=== PATIENT | male | born 1980 | race Two or more races ===

== ENCOUNTER 2017-12-10 18:42 | Emergency (ER) | payer OTHER ==
[~2017-12-10] VITALS: Ht 165.1 cm; Wt 74.8 kg
[~2017-12-10 18:42] MED LIST: FEN145 PO; FENO145T PO; LOSA25TA50 PO; METH-543 PO
--- NOTE | 2017-12-10 18:48 | ER Report ---
History and Physical Time Seen By MD: 18:47 Hx. of Stated Complaint: Right upper quadrant abdominal pain HPI/ROS 37-year-old male was told in July incidentally while getting a right upper quadrant ultrasound that he had gallstones states that tonight about 5:00 he started having sharp shooting pain to his back is nauseated and has had fatty food the last 24 hours last ate at 5 PM had soup at that time Remainder of the 14 system rev: Yes Allergies: Coded Allergies: FILIBERTO Inhibitors (Verified Adverse Reaction, Intermediate, UNCONTROLLED COUGH, 07/15/17) Home Meds Active Scripts Methocarbamol (ROBAXIN-750) 750 Mg Tablet, 1 TAB PO TID Y for muscle spasm relief, #20 Prov:JANES RUIZ Arelis DO 07/15/17 Reported Medications Losartan Potassium (LOSARTAN POTASSIUM) 25 Mg Tablet, 25 MG PO QDAY 01/18/17 Fenofibrate Nanocrystallized (FENOFIBRATE) 145 Mg Tablet, 145 MG PO QDAY 01/18/17 Past Medical/Surgical History Strip hypertension hyperlipidemia, fatty liver Reviewed Nurses Notes: Yes Old Medical Records Reviewed: Yes Hx Smoking: No Smoking Status: Never Smoker Hx Substance Use Disorder: No Hx Alcohol Use: Yes Family History of: HTN Constitutional Vital Sign - Last 24 Hours 12/10/17 18:47 Temp 98.4 Pulse 79 Resp 16 B/P (MAP) 154/102 Pulse Ox 93 O2 Delivery Room Air Intake and Output 12/10/17 12/10/17 12/11/17 15:00 23:00 07:00 Intake Total 1000 ml Balance 1000 ml Physical Exam 37-year-old male alert and oriented mild distress HEENT has normocephalic atraumatic throat is non-reddened neck is supple no JVD no lymphadenopathy heart rate is regular no murmurs rubs or gallops lungs clear to auscultation abdomen is obese of right upper quadrant abdominal pain to palpation positive Oden sign bowel sounds 4 quadrants moves all extremities no peripheral edema Medical Decision Making Data Points Result Diagram: 12/10/17 1905 12/10/17 1905 Laboratory Hematology Test 12/10/17 19:05 12/10/17 19:29 Red Blood Count 5.43 M/uL (4.00-5.60) Mean Corpuscular Volume 89.0 fL (80.0-96.0) Mean Corpuscular Hemoglobin 31.4 pg (26.0-33.0) Mean Corpuscular Hemoglobin Concent 35.3 g/dL (32.0-36.0) Red Cell Distribution Width 12.8 % (11.5-14.5) Mean Platelet Volume 9.7 fL (7.2-11.1) Neutrophils (%) (Auto) 79.9 % (39.4-72.5) Lymphocytes (%) (Auto) 12.3 % (17.6-49.6) Monocytes (%) (Auto) 5.8 % (4.1-12.4) Eosinophils (%) (Auto) 1.3 % (0.4-6.7) Basophils (%) (Auto) 0.7 % (0.3-1.4) Nucleated RBC Relative Count (auto) 0.0 /100WBC Neutrophils # (Auto) 8.8 K/uL (2.0-7.4) Lymphocytes # (Auto) 1.4 K/uL (1.3-3.6) Monocytes # (Auto) 0.6 K/uL (0.3-1.0) Eosinophils # (Auto) 0.1 K/uL (0.0-0.5) Basophils # (Auto) 0.1 K/uL (0.0-0.1) Nucleated RBC Absolute Count (auto) 0.00 K/uL Sodium Level 137 mmol/L (137-145) Potassium Level 3.8 mmol/L (3.5-5.0) Chloride Level 100 mmol/L (98-107) Carbon Dioxide Level 23 mmol/L (22-30) Blood Urea Nitrogen 11 mg/dl (9-21) Creatinine 0.90 mg/dl (0.66-1.25) Glomerular Filtration Rate Calc > 60.0 Random Glucose 122 mg/dl (75-110) Lactate 2.0 mmol/L (0.7-2.1) Calcium Level 9.8 mg/dl (8.4-10.2) Total Bilirubin 0.8 mg/dl (0.2-1.3) Aspartate Amino Transf (AST/SGOT) 124 U/L (0-35) Alanine Aminotransferase (ALT/SGPT) 315 U/L (0-56) Alkaline Phosphatase 82 U/L (0-126) Total Protein 8.4 gm/dl (6.3-8.2) Albumin 4.8 g/dl (3.5-5.0) Amylase Level 93 U/L (0-110) Lipase 63 U/L (23-300) Helicobacter pylori IgG Antibody Negative (NEGATIVE) Urine Color Yellow Urine Clarity Clear Urine pH 5.0 pH (4.8-9.5) Urine Specific Terral 1.021 Urine Protein 30 mg/dL (NEGATIVE) Urine Glucose (UA) Negative mg/dL (NEGATIVE) Urine Ketones Negative mg/dL (NEGATIVE) Urine Blood Negative (NEGATIVE) Urine Nitrite Negative (NEGATIVE) Urine Bilirubin Negative (NEGATIVE) Urine Urobilinogen Negative mg/dL (0.2-1.9) Urine Leukocyte Esterase Negative (NEGATIVE) Urine RBC 1 /HPF (0-2/HPF) Urine WBC <1 /HPF (0-5/HPF) Urine Squamous Epithelial Cells Few /LPF (</=FEW) Urine Bacteria Negative /HPF (NONE-FEW) Urine Mucus None /HPF (NONE-FEW) Chemistry Test 12/10/17 19:05 12/10/17 19:29 White Blood Count 11.1 k/uL (4.5-11.0) Red Blood Count 5.43 M/uL (4.00-5.60) Hemoglobin 17.1 g/dL (14.0-18.0) Hematocrit 48.3 % (42.0-52.0) Mean Corpuscular Volume 89.0 fL (80.0-96.0) Mean Corpuscular Hemoglobin 31.4 pg (26.0-33.0) Mean Corpuscular Hemoglobin Concent 35.3 g/dL (32.0-36.0) Red Cell Distribution Width 12.8 % (11.5-14.5) Platelet Count 255 K/uL (150-450) Mean Platelet Volume 9.7 fL (7.2-11.1) Neutrophils (%) (Auto) 79.9 % (39.4-72.5) Lymphocytes (%) (Auto) 12.3 % (17.6-49.6) Monocytes (%) (Auto) 5.8 % (4.1-12.4) Eosinophils (%) (Auto) 1.3 % (0.4-6.7) Basophils (%) (Auto) 0.7 % (0.3-1.4) Nucleated RBC Relative Count (auto) 0.0 /100WBC Neutrophils # (Auto) 8.8 K/uL (2.0-7.4) Lymphocytes # (Auto) 1.4 K/uL (1.3-3.6) Monocytes # (Auto) 0.6 K/uL (0.3-1.0) Eosinophils # (Auto) 0.1 K/uL (0.0-0.5) Basophils # (Auto) 0.1 K/uL (0.0-0.1) Nucleated RBC Absolute Count (auto) 0.00 K/uL Glomerular Filtration Rate Calc > 60.0 Lactate 2.0 mmol/L (0.7-2.1) Calcium Level 9.8 mg/dl (8.4-10.2) Total Bilirubin 0.8 mg/dl (0.2-1.3) Aspartate Amino Transf (AST/SGOT) 124 U/L (0-35) Alanine Aminotransferase (ALT/SGPT) 315 U/L (0-56) Alkaline Phosphatase 82 U/L (0-126) Total Protein 8.4 gm/dl (6.3-8.2) Albumin 4.8 g/dl (3.5-5.0) Amylase Level 93 U/L (0-110) Lipase 63 U/L (23-300) Helicobacter pylori IgG Antibody Negative (NEGATIVE) Urine Color Yellow Urine Clarity Clear Urine pH 5.0 pH (4.8-9.5) Urine Specific Terral 1.021 Urine Protein 30 mg/dL (NEGATIVE) Urine Glucose (UA) Negative mg/dL (NEGATIVE) Urine Ketones Negative mg/dL (NEGATIVE) Urine Blood Negative (NEGATIVE) Urine Nitrite Negative (NEGATIVE) Urine Bilirubin Negative (NEGATIVE) Urine Urobilinogen Negative mg/dL (0.2-1.9) Urine Leukocyte Esterase Negative (NEGATIVE) Urine RBC 1 /HPF (0-2/HPF) Urine WBC <1 /HPF (0-5/HPF) Urine Squamous Epithelial Cells Few /LPF (</=FEW) Urine Bacteria Negative /HPF (NONE-FEW) Urine Mucus None /HPF (NONE-FEW) Urinalysis Test 12/10/17 19:29 Urine Color Yellow Urine Clarity Clear Urine pH 5.0 pH (4.8-9.5) Urine Specific Terral 1.021 Urine Protein 30 mg/dL (NEGATIVE) Urine Glucose (UA) Negative mg/dL (NEGATIVE) Urine Ketones Negative mg/dL (NEGATIVE) Urine Blood Negative (NEGATIVE) Urine Nitrite Negative (NEGATIVE) Urine Bilirubin Negative (NEGATIVE) Urine Urobilinogen Negative mg/dL (0.2-1.9) Urine Leukocyte Esterase Negative (NEGATIVE) Urine RBC 1 /HPF (0-2/HPF) Urine WBC <1 /HPF (0-5/HPF) Urine Squamous Epithelial Cells Few /LPF (</=FEW) Urine Bacteria Negative /HPF (NONE-FEW) Urine Mucus None /HPF (NONE-FEW) EKG/Imaging Imaging FACILITY: PATIENT NAME: Viktor Holbrook : 1980 MR: [id number] V: [id number] EXAM DATE: ORDERING PHYSICIAN: ROSEANNA FINNEGAN [place]CHNOLOGIST: [place] [facility] [place] Viktor Hol[place] : 1980 Visit/Account:[id number] Date of Sevice: 12/10/2017 EXAMINATION: Focused right upper quadrant ultrasound COMPARISON: None HISTORY: Right upper quadrant pain today. Findings: Standard right upper quadrant abdominal ultrasound is performed. Pancreas: Visualized portions of the pancreas are unremarkable. The tail is obscured by bowel gas. Liver and portal vein: Diffusely echogenic liver. Main portal vein is patent. Gallbladder and biliary system: 16mm gallstone in the gallbladder neck and likely a small amount of gallbladder sludge. No wall thickening. Trace pericholecystic fluid. A positive sonographic Oden sign is reported. Common bile duct is poorly visualized. Aorta and IVC: The visualized aorta and IVC are patent. Kidneys: The right kidney measures 11.1 x 5.9 x 6.1 cm . No renal mass, stone, or hydronephrosis. Ascites: None. IMPRESSION: 1. Cholelithiasis with trace pericholecystic fluid as well as a positive sonographic Oden sign. Acute cholecystitis is a possibility and surgical consultation is recommended. 2. Hepatic steatosis. Results were discussed with ROSEANNA FINNEGAN at 12/10/2017 8:34 PM. Report Dictated By: Jairo Lyons MD at 12/10/2017 8:30 PM Report E-Signed By: Jairo Lyons MD at 12/10/2017 8:34 PM WSN:[id number] ED Course/Re-evaluation Clinical Indication for ER IV: Hydration ED Course Ultrasound report from oxygen therapy technician is common bile duct was measured at 4.7 multiple stones in the gallbladder gallbladder wall is slightly thick does have a fatty liver Re-evaluation Discussed patient with Dr. mon he will come and see the patient and talked with him about when to take the gallbladder out. Dr. Dr. Slater came and saw patient tonight together they decided patient will go home overnight come back in tomorrow to have his gallbladder removed we'll send him home with Zofran and Conrath instructions to remain nothing by mouth after midnight Decision to Disposition Date: Dec 10, 2017 Decision to Disposition Time: 19:19 Depart Departure Latest Vital Signs Vital Signs Date Time Temp Pulse Resp B/P (MAP) Pulse Ox O2 Delivery O2 Flow Rate FiO2 12/10/17 18:47 98.4 79 16 154/102 93 Room Air Impression: Primary Impression: Cholecystitis Condition: Improved Disposition: HOME OR SELF-CARE Referrals: AVIS BRUNO MD (PCP) JAYNE LEONARD MD 1 Day Patient Instructions: Cholecystitis (ED) Additional Instructions: Take Zofran 1 every 6 hours as needed for nausea Conrath 2 every 4-6 hours as needed for pain nothing Teater drink after midnight as instructed by her surgeon , they will call you tomorrow to set up your gallbladder surgery return for worsening symptoms ROSEANNA FINNEGAN Dec 10, 2017 18:48
[2017-12-10] MEDS ORDERED: NS(*) 0.9% 1000 ML BAG 1,000 ML IV ONE ×2 (18:53→20:35)
[2017-12-10] MEDS ORDERED: PANTOPRAZOLE SOD 40 MG IV VIAL IVP ONE (18:55)
[2017-12-10] MEDS ORDERED: fentaNYL CITR 100 MCG/2 ML AMP IVP ONE (18:55)
[2017-12-10] MEDS ORDERED: ONDANSETRON 4 MG/2 ML VIAL IVP ONE (18:55)
[2017-12-10 19:20] LABS: PLATELET COUNT, AUTOMATED 255 K/uL (150-450)
[2017-12-10] MEDS ORDERED: PIPERACILLIN/TAZO*3.375GM VIAL 3.375 GM in NS(*) 0.9% 100 ML ADDVANT BAG 100 ML IVPB ONE (20:25)
--- NOTE | 2017-12-10 20:38 | RADIOLOGY IMAGING REPORT ---
FACILITY: [facility] - [place] PATIENT NAME: Viktor Holbrook : 1980 MR: [id number] V: [id number] EXAM DATE: ORDERING PHYSICIAN: ROSEANNA FINNEGAN TECHNOLOGIST: Location: [facility] - [place] Patient: Viktor Holbrook : 1980 Visit/Account:[id number] Date of Sevice: 12/10/2017 EXAMINATION: Focused right upper quadrant ultrasound COMPARISON: None HISTORY: Right upper quadrant pain today. Findings: Standard right upper quadrant abdominal ultrasound is performed. Pancreas: Visualized portions of the pancreas are unremarkable. The tail is obscured by bowel gas. Liver and portal vein: Diffusely echogenic liver. Main portal vein is patent. Gallbladder and biliary system: 16mm gallstone in the gallbladder neck and likely a small amount of g allbladder sludge. No wall thickening. Trace pericholecystic fluid. A positive sonographic Oden sig n is reported. Common bile duct is poorly visualized. Aorta and IVC: The visualized aorta and IVC are patent. Kidneys: The right kidney measures 11.1 x 5.9 x 6.1 cm . No renal mass, stone, or hydronephrosis. Ascites: None. IMPRESSION: 1. Cholelithiasis with trace pericholecystic fluid as well as a positive sonographic Oden sign. Acu te cholecystitis is a possibility and surgical consultation is recommended. 2. Hepatic steatosis. Results were discussed with ROSEANNA FINNEGAN at 12/10/2017 8:34 PM. Report Dictated By: Jairo Lyons MD at 12/10/2017 8:30 PM Report E-Signed By: Jairo Lyons MD at 12/10/2017 8:34 PM WSN:[id number]
[2017-12-10] MEDS ORDERED: ACET/HYDROC 5/325MG TH ER ONLY 2 TAB/BOTTLE PO ONE (21:00)
[2017-12-10] MEDS ORDERED: ONDANSETRON 4 MG ODT TH SL ONE (21:00)
[2017-12-10] MEDS ORDERED: APAP/HYDROCODONE 325/5 TAB PO ONE (21:00)
[2017-12-10 21:04] VITALS: BP 167/108
--- NOTE | 2017-12-10 21:07 | General Surgery 1 H&P ---
History of Present Illness Chief Complaint epigastric pain History of Present Illness 37 yo male with a history of htn presents with epigastric pain for approx 12 hours. it is an aching pain across the upper abdomen. no radiation to the back. he has nausea. not much appetite. no fever. he has had some back spasms in the past but not quite like this. he is seen in the ed. ultrasound reveals cholelithiasis and cholecystitis. wbc slightly elevated at 11. lfts show alk phos and bilirubin normal and slight increase in sgot and sgpt. History Other Past Surgeries: none Home Meds Active Scripts Methocarbamol (ROBAXIN-750) 750 Mg Tablet, 1 TAB PO TID Y for muscle spasm relief, #20 Prov:JANES RUIZ DO 07/15/17 Reported Medications Losartan Potassium (LOSARTAN POTASSIUM) 25 Mg Tablet, 25 MG PO QDAY 01/18/17 Fenofibrate Nanocrystallized (FENOFIBRATE) 145 Mg Tablet, 145 MG PO QDAY 01/18/17 Allergies: Coded Allergies: FILIBERTO Inhibitors (Verified Adverse Reaction, Intermediate, UNCONTROLLED COUGH, 07/15/17) Family History: FH: diabetes mellitus FATHER, , Age:72 FH: heart disease BROTHER OR SISTER FH: hypertension FATHER, , Age:72 BROTHER OR SISTER Malignant neoplasm of gastrointestinal tract BROTHER OR SISTER, Age:42 Malignant neoplasm of gastrointestinal tract BROTHER OR SISTER, Age:42 Review of Systems History of Hypertension?: Yes History of DVT?: No Obstructive Sleep Apnea?: No History of Liver Disease?: Yes (fatty liver) History of Kidney Disease?: No Constitutional: No Fever, No Weight Loss, No Weight Gain, No Chills, No Night Sweats, No Other Respiratory: Denies Shortness of Breath, Denies Other Cardiovascular: Denies Chest Pain, Denies Other : Denies Dysuria, Denies Other Exam Vital Signs Date Time Temp Pulse Resp B/P (MAP) Pulse Ox O2 Delivery O2 Flow Rate FiO2 12/10/17 18:47 98.4 79 16 154/102 93 Room Air General Appearance: Alert, Awake, No Acute Distress Cardiovascular: Regular Rate and Rhythm Respiratory: Clear to Auscultation GI: Other (abdomen soft mild tenderness in the epigastrium.) Medical Decision Making Data Points Result Diagram: 12/10/17190412/10/171904 Assessment and Plan Problems: (1) Cholecystitis Status: Acute Assessment & Plan: 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 he ate 3 hours ago and that make him at increased risk for anesthesia. we will plan on doing procedure tomorrow. pt would like to go home for the night. will give him some po pain meds and he is to be npo except sip of water with meds. Venous Thromboembolism Antithrombotics Is Pt On Any Antithrombotics?: No JAYNE LEONARD MD Dec 10, 2017 21:07
[2017-12-11] MEDS ORDERED: FAMOTIDINE 20 MG TAB PO ONE (10:00)
[2017-12-11] MEDS ORDERED: NORMOSOL R SOLN(*) 1000 ML BAG 1,000 ML IV PRN (10:00)
[2017-12-11] MEDS ORDERED: LIDOCAINE/SOD BICARB 8.4% SYR ID ONE (10:00)
[2017-12-11] MEDS ORDERED: MIDAZOLAM 2 MG/2 ML VIAL IVP PRN (10:00)
[2017-12-11] MEDS ORDERED: KET10 PO (11:14)
[2017-12-11] MEDS ORDERED: HYDR-4309 PO (11:14)
== END 2017-12-10 21:20 | disposition home or self-care (01) ==
LOC: ER 18:55
DX: K81.9 Cholecystitis, unspecified (principal); K76.0 Fatty (change of) liver, not elsewhere classified
CPT/HCPCS: 76705; 81001; 82150; 83605; 83690; 85025; 86677; 96361; 96365; 96375; 99284; C9113; J2405; J2543; J3010; J7030; J7050; S0119; 82040; 82247; 82310; 82374; 82435; 82565; 82947; 84075; 84132; 84155; 84295; 84450; 84460; 84520

== ENCOUNTER 2017-12-11 08:39 | Day surgery (SDC) | payer OTHER ==
[~2017-12-11] VITALS: Ht 165.1 cm; Wt 75.3 kg
[2017-12-11] MEDS: NORMOSOL R SOLN(*) 1000 ML BAG 1,000 ML IV PRN ×2 (09:54→14:30)
[2017-12-11] MEDS ORDERED: FAMOTIDINE 20 MG TAB PO ONE (10:00)
[2017-12-11] MEDS ORDERED: cefOXitin/DEX(*) 2GM/50ML PREM 50 ML IVPB ONE (10:00)
[2017-12-11] MEDS ORDERED: MIDAZOLAM 2 MG/2 ML VIAL IVP PRN (10:00)
[2017-12-11] MEDS ORDERED: LIDOCAINE/SOD BICARB 8.4% SYR ID ONE (10:00)
[2017-12-11 10:05] VITALS: BP 149/95
[2017-12-11] MEDS ORDERED: ROPIVACAINE 0.2% 20 ML VIAL ONE (11:12)
--- NOTE | 2017-12-11 11:13 | Post Operative Progress Note ---
Post Operative Progress Note Date: Dec 11, 2017 Time: 13:24 Surgeon: khloe Anesthesia: dr melgoza Pre-Op Diagnosis: cholelithiasis and cholecystitis Post-Op Diagnosis: same and choledocholithiasis Procedure(s): lap trudi with gram and common bile duct exploration JAYNE LEONARD MD Dec 11, 2017 11:13
[2017-12-11] MEDS ORDERED: KET10 PO (11:14)
[2017-12-11] MEDS ORDERED: HYDR-4309 PO (11:14)
--- NOTE | 2017-12-11 11:16 | Short(Outpt) Discharge Summary ---
Discharge Summary Reason for Hosp/Final Diag: (1) Cholecystitis Status: Acute Hospital Course & Plan: laparoscopic cholecystectomy and common bile duct exploration and cholangiogram (2) Choledocholithiasis Departure Discharge to: Home Discharge Instructions Home Meds Active Scripts Hydrocodone Bit/Acetaminophen (NORCO 5-325 TABLET) 1 Each Tablet, 1 EACH PO Q4H Y for PAIN, #30 TAB Prov:JAYNE LEONARD MD 12/11/17 Ketorolac Tromethamine (KETOROLAC TROMETHAMINE) 10 Mg Tab, 10 MG PO Q6H, #20 TAB Prov:JAYNE LEONARD MD 12/11/17 Methocarbamol (ROBAXIN-750) 750 Mg Tablet, 1 TAB PO TID Y for muscle spasm relief, #20 Prov:JANES RUIZ DO 07/15/17 Reported Medications Losartan Potassium (LOSARTAN POTASSIUM) 25 Mg Tablet, 25 MG PO QDAY 01/18/17 Fenofibrate Nanocrystallized (FENOFIBRATE) 145 Mg Tablet, 145 MG PO QDAY 01/18/17 Diet: Regular Activity: As Tolerated Special Instructions: ice to incision for 48 hours remove bandage and shower saturday to see me in one week, call [phone] for apt JAYNE LEONARD MD Dec 11, 2017 11:16
[2017-12-11] MEDS ORDERED: SUGAMMADEX SOD 200 MG/2 ML SDV ONE (11:30)
[2017-12-11] MEDS ORDERED: PROPOFOL EMUL(*) 10MG/ML 20 ML 20 ML ONE (11:30)
[2017-12-11] MEDS ORDERED: LABETALOL HCL 20 MG/4 ML SYR ONE (11:30)
[2017-12-11] MEDS ORDERED: METOCLOPRAMIDE 10 MG/2 ML SDV ONE (11:30)
[2017-12-11] MEDS ORDERED: DEXAMETHASONE SOD 4 MG/ML VIAL ONE (11:30)
[2017-12-11] MEDS ORDERED: LIDOCAINE MPF 1% 5 ML VIAL ONE (11:30)
[2017-12-11] MEDS ORDERED: ONDANSETRON 4 MG/2 ML VIAL ONE (11:30)
[2017-12-11] MEDS ORDERED: fentaNYL CITR 250 MCG/5 ML AMP ONE (11:31)
[2017-12-11] MEDS ORDERED: IOPAMIDOL 61% 75 ML INFUS BTL 75 ML ONE (11:32)
[2017-12-11] MEDS ORDERED: ROCURONIUM BROM 10 MG/ML 10 ML ONE (11:33)
[2017-12-11] MEDS ORDERED: KETOROLAC 30 MG/ML VIAL ONE (13:07)
--- NOTE | 2017-12-11 14:19 | RADIOLOGY IMAGING REPORT ---
FACILITY: [facility] - [place] PATIENT NAME: Viktor Holbrook : 1980 MR: [id number] V: [id number] EXAM DATE: ORDERING PHYSICIAN: JAYNE LEONARD TECHNOLOGIST: [place] [facility] [place] Viktor Hol[place] : 1980 Visit/Account:[id number] Date of Sevice: 12/11/2017 Intraoperative cholangiogram Indication: Epigastric pain Findings: DOSE: DAP was 0.3795 mGy*m2. Cannulation of the cystic duct remnant is noted. Initial opacification demonstrates some spillage al caro the needle tip. The intrahepatic biliary system appeared unremarkable. Initial images demonstra te possible filling defect distal common bile duct. Final images demonstrate no filling defects in t he biliary system. Spillage is seen into the duodenum rapidly IMPRESSION: 1. Intraoperative cholangiography Report Dictated By: Wilbert Bazan MD at 12/11/2017 2:13 PM Report E-Signed By: Wilbert Bazan MD at 12/11/2017 2:14 PM WSN:[email or web address]
[2017-12-11 14:30] VITALS: BP 122/84
[2017-12-11 14:45] VITALS: BP 125/87
[2017-12-11 15:00] VITALS: BP 130/90
[2017-12-11 15:15] VITALS: BP 131/87
[2017-12-11 15:18] VITALS: BP 131/88
--- NOTE | 2017-12-11 21:29 | OPERATIVE REPORT 1 ---
EVENT DATE: December 11, 2017 SURGEON: Nacho Fink MD ANESTHESIOLOGIST: Geo Mathew MD ANESTHESIA: General. PREOPERATIVE DIAGNOSES Cholelithiasis and cholecystitis. POSTOPERATIVE DIAGNOSES Acute cholecystitis, cholelithiasis, and choledocholithiasis. PROCEDURE PERFORMED Laparoscopic cholecystectomy with common bile duct exploration and cholangiogram. DESCRIPTION OF PROCEDURE The patient was placed in the supine position and given general anesthetic. His abdomen was prepped and draped in a sterile fashion. The skin was anesthetized with 0.2% ropivacaine. A small incision was made above the umbilicus. A Veress needle was inserted. The abdomen was insufflated with CO2. We then placed a 5 mm port under direct vision. We then placed two 5 mm ports in the right subcostal region and a 10 mm in the epigastrium under direct vision. The gallbladder was visualized. It was acutely inflamed. We could not get ahold of it, so we had to aspirate it. After it was aspirated, we were able to grasp the thickened, inflamed gallbladder and raise it cephalad. We dissected out the cystic duct-gallbladder junction. The cystic duct was quite dilated. We opened the cystic duct and obtained cholangiograms which showed a filling defect. We then passed the ureteral stone basket several times and removed sludge. We then irrigated the duct out with saline and repeated the cholangiogram. This showed a distal filling defect. We reinserted the stone basket and retrieved a stone. At this point, we again irrigated the duct with saline and repeated the cholangiogram. This showed good flow into the duodenum and no filling defect. At this point, the cystic duct was transected. It was ligated with an 0 chromic Endoloop. We then placed two clips into position. We then dissected out the distal duct. This was clipped proximally and transected. We used electrocautery to dissect the gallbladder from the bed of the liver. This dissection went very nicely. We had excellent hemostasis. The gallbladder was placed in an Endo Pouch and removed through the epigastric port. We then suctioned, irrigated, and inspected for bleeding. We had excellent hemostasis in the gallbladder fossa. The ports were removed under direct vision. No bleeding was noted. The epigastric port was closed with an 0 Vicryl. The skin was closed with interrupted 4-0 Maxon. Steri-Strips and an Airstrip were placed. The patient tolerated the procedure well. No apparent complications. [facility]
== END 2017-12-11 14:30 | disposition home or self-care (01) ==
LOC: OR 08:39
PROVIDERS: ATTEND Surgery
DX: K80.00 Calculus of gallbladder with acute cholecystitis without obstruction (principal); K80.50 Calculus of bile duct without cholangitis or cholecystitis without obstruction
CPT/HCPCS: 47564; 74300; J0694; J1100; J1885; J2001; J2405; J2704; J2765; J2795; J3010; J3490; Q9967; 88304

== ENCOUNTER → 2018-01-15 | Outpatient (CLI) | payer OTHER ==
[~2018-01-15] MED LIST changes: +HYDR-4309 PO; +KET10 PO
== END ==
LOC: LAB 15:54
PROVIDERS: ATTEND Emergency Medicine
DX: R74.8 Abnormal levels of other serum enzymes (principal)
CPT/HCPCS: 36415; 82040; 82103; 82247; 82248; 82390; 82784; 83516; 83540; 83550; 84075; 84155; 84165; 84450; 84460

== ENCOUNTER → 2018-01-22 | Outpatient (CLI) | payer OTHER ==
[~2018-01-22] MED LIST changes: -FENO145T PO; +FENO145T36 PO
== END ==
LOC: LAB 13:47
PROVIDERS: ATTEND Emergency Medicine
DX: R74.8 Abnormal levels of other serum enzymes (principal)
CPT/HCPCS: 36415; 86706; 86707; 87340; 87350

== ENCOUNTER → 2018-02-14 | Outpatient (CLI) | payer OTHER ==
[~2018-02-14] MED LIST changes: +LOSA100T67 PO
== END ==
LOC: RESP 20:56
PROVIDERS: ATTEND Emergency Medicine
DX: G47.33 Obstructive sleep apnea (adult) (pediatric) (principal); G47.36 Sleep related hypoventilation in conditions classified elsewhere; E66.3 Overweight

== ENCOUNTER → 2018-02-26 | Outpatient (CLI) | payer OTHER | LOC: RESP 19:52 | PROVIDERS: ATTEND Emergency Medicine | DX: G47.33 Obstructive sleep apnea (adult) (pediatric) (principal); E66.3 Overweight ==

== ENCOUNTER → 2018-08-22 | Outpatient (CLI) | payer OTHER ==
[~2018-08-22] MED LIST changes: -LOSA100T67 PO; +LOSA100T69 PO; -LOSA25TA50 PO; +LOSA25TA52 PO
== END ==
LOC: LAB 07:17
PROVIDERS: ATTEND Emergency Medicine
DX: E87.1 Hypo-osmolality and hyponatremia (principal)
CPT/HCPCS: 36415; 82465; 83718; 84478

== ENCOUNTER → 2019-04-03 | Outpatient (CLI) | payer OTHER ==
[~2019-04-03] MED LIST changes: +AMLO2.5T78 PO; -HYDR-4309 PO; +HYDR-653 PO; -LOSA100T69 PO; +LOSA100T75 PO; -LOSA25TA52 PO; +LOSA25TA57 PO
== END ==
LOC: LAB 08:05
PROVIDERS: ATTEND Emergency Medicine
DX: E78.1 Pure hyperglyceridemia (principal)
CPT/HCPCS: 36415; 82465; 83718; 84478; 86140

== ENCOUNTER → 2019-05-11 | Outpatient (CLI) | payer OTHER ==
[~2019-05-11] MED LIST changes: +AMLO-125 PO
[2019-05-11 08:34] LABS: PLATELET COUNT, AUTOMATED 208 K/uL (150-450)
== END ==
LOC: LAB 08:02
PROVIDERS: ATTEND Emergency Medicine
DX: E78.1 Pure hyperglyceridemia (principal); I10 Essential (primary) hypertension
CPT/HCPCS: 36415; 82040; 82247; 82310; 82374; 82435; 82465; 82565; 82607; 82947; 83036; 83718; 84075; 84132; 84155; 84295; 84443; 84450; 84460; 84478; 84520; 85025; 86140